=== PATIENT | female | born 1950 | race Two or more races ===

== ENCOUNTER 2019-04-15 11:28 | Emergency (ER) | payer MEDICARE, OTHER ==
[~2019-04-15] VITALS: Ht 162.6 cm; Wt 75.3 kg
[~2019-04-15 11:28] MED LIST: LOSA25TA25 PO; MECL12.52 PO
--- NOTE | 2019-04-15 11:57 | NUR ---
pt here for htn, not high glucose. no fsbg taken.
[2019-04-15] MEDS ORDERED: SODIUM CHLORIDE FLUSH 10ML SYR IVF ONE (12:00)
--- NOTE | 2019-04-15 12:11 | NUR ---
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
[2019-04-15 12:25] LABS: BASOPHILS # (AUTO) 0.04 x10^3/uL (0-0.1); BASOPHILS % (AUTO) 0 % (0-1); EOSINOPHILS # (AUTO) 0.02 x10^3/uL (0-0.4); EOSINOPHILS % (AUTO) 0 % (1-7); LYMPHOCYTES # (AUTO) 1.43 x10^3/uL (1-3.4); LYMPHOCYTES % (AUTO) 17 % (22-44); MD NO; MEAN CORPUSCULAR HEMOGLOBIN 22.7 pg (27.0-34.8); MEAN CORPUSCULAR HGB CONC 31.6 g/dL (32.4-35.8); MEAN CORPUSCULAR VOLUME 71.9 fL (80-100); MEAN PLATELET VOLUME 8.7 fL (7.4-10.4); MONOCYTES # (AUTO) 0.37 x10^3/uL (0.2-0.8); MONOCYTES % (AUTO) 4 % (2-9); NEUTROPHILS # (AUTO) 6.71 x10^3/uL (1.8-6.8); NEUTROPHILS % (AUTO) 78 % (42-75); PLATELET COUNT 262 x10^3/uL (130-400); RED BLOOD COUNT 5.52 x10^6/uL (3.82-5.3); RED CELL DISTRIBUTION WIDTH 14.7 % (9.6-15.2)
--- NOTE | 2019-04-15 12:29 | NUR ---
BREAK RN: THIS IS A 69 YEAR OLD FEMALE WHO C/O OF HTN, DIZZINESS. PT PLACED ON CARDIAC MONTIOR SINUS, CONTINOUS SP02 AT 97%, AND CYCLE VS. WARM BLANKET GIVEN, FAMILY AT BS.
[2019-04-15 12:36] LABS: ALANINE AMINOTRANSFERASE 22 U/L (12-78); ALBUMIN 4.2 g/dL (3.4-5.0); ANION GAP 8 mmol/L (5-15); CALCIUM 8.6 mg/dL (8.5-10.1); CHLORIDE 107 mmol/L (98-107); CREATININE 0.79 mg/dL (0.55-1.02)
[2019-04-15 12:38] LABS: ALKALINE PHOSPHATASE 85 U/L (45-117); BILIRUBIN,TOTAL 0.8 mg/dL (0.2-1.0); TOTAL PROTEIN 8.7 g/dL (6.4-8.2)
--- NOTE | 2019-04-15 13:00 | NUR ---
REPORT RECEIVED FROM MICHAEL ESCUDERO.
[2019-04-15] MEDS ORDERED: HYDROCHLOROTHIAZIDE 25 MG TABLET PO ONE (13:30)
[2019-04-15 14:04] VITALS: BP 155/62
--- NOTE | 2019-04-15 14:15 | NUR ---
PT A&OX4, RESPS EVEN AND UNLABORED,PT DENIES PAIN. PT REPORTS DIZZINESS RESOLVED. NEURO INTACT. NSR ON REFUELING RAMPMAN WITH NO ECTOPY. BP 155/72. PT AND FAMILY REFUSE HCTZ ORDERED, STATING THEY WILL FILL SCRIPT AND TAKE AT HOME. PT GIVEN DC INSTRUCTIONS AND SCRIPT, EDUCATED REGARDING RX FOR HCTZ. PT AMB TO DC DESK WITH STEADY GAIT ACCOMPANIED BY DAUGHTER IN LAW.
== END 2019-04-15 14:27 | disposition home or self-care (01) ==
LOC: ED 13:24
DX: I10 Essential (primary) hypertension (principal); R42 Dizziness and giddiness
CPT/HCPCS: 36415; 71045; 80053; 85025; 93005; 99284